=== PATIENT | male | born 1940 | race Two or more races ===

== ENCOUNTER 2021-08-22 02:05 | Emergency (ER) | payer OTHER ==
[~2021-08-22] VITALS: Ht 170.2 cm; Wt 68.0 kg
[2021-08-22 03:31] LABS: Basophils # (auto) 0.1 10 ^3/uL (0-0.2); Basophils % (auto) 0.6 % (0.0-2.0); Eosinophils # (auto) 0.3 10 ^3/uL (0-0.8); Eosinophils % (auto) 1.3 % (0.0-7.0); Hematocrit 32.9 % (41.0-53.0); Hemoglobin 10.5 g/dL (13.5-17.5); Lymphocytes # (auto) 1.3 10 ^3/uL (0.4-5.4); Lymphocytes % (auto) 6.4 % (10.0-50.0); Mean Corpuscular Hemoglobin 29.9 pg (28.0-32.0); Mean Corpuscular Hgb Conc. 31.9 g/dL (32.0-36.0); Mean Corpuscular Volume 93.8 fL (80.0-100.0); Monocytes % (auto) 4.9 % (0.0-12.0); Neutrophils # (auto) 17.1 10 ^3/uL (1.6-8.6); Neutrophils % (auto) 86.8 % (37.0-80.0); Red Blood Cells 3.51 10^6/uL (4.5-5.90); Red Cell Distribution Width 14.1 % (11.8-14.3); White Blood Cell 19.7 10^3/uL (4.4-10.8)
[2021-08-22] MEDS ORDERED: HYDROcodone-ACET 7.5/325MG TAB PO ONE (03:45)
[2021-08-22 03:58] LABS: Lactic Acid w/Reflex 2.8 mmol/L (0.4-2.0)
[2021-08-22 04:00] LABS: Albumin 2.8 g/dL (3.4-5.0); BUN/Creatinine Ratio 22.5; Calcium 8.1 mg/dL (8.5-10.1); Magnesium 3.2 mg/dL (1.6-2.6); Potassium 4.4 mmol/L (3.5-5.1)
[2021-08-22 04:07] LABS: Bilirubin, Total 0.3 mg/dL (0.2-1.0); Total Protein 5.7 g/dL (6.4-8.2)
[2021-08-22 04:13] LABS: CRP High Sensitivity 0.64 mg/dL (< 0.3)
[2021-08-22] MEDS ORDERED: PIPERACILLIN-TAZOB 3.375GM 100 ML IV ONE (04:30)
[2021-08-22] MEDS ORDERED: SODIUM CHLORIDE 0.9% 2,000 ML IV ONE (04:30)
[2021-08-22] MEDS: SODIUM CHLORIDE 0.9% 1,000 ML IV ONE ×2 (09:00)
[2021-08-22] MEDS: FINASTERIDE 5 MG TAB PO SCH ×2 (09:00→10:00)
[2021-08-22] MEDS: ALBUTEROL SULF 2.5 MG/0.5ML(0.5%) NEB SOLN NEB SCH ×3 (12:00→23:42)
[2021-08-22 12:11] LABS: Partial Thromboplastin Time 25.9 sec (23.6-33.0)
[2021-08-22] MEDS: PIPERACILLIN-TAZOB 2.25GM 50 ML IV SCH ×2 (12:15→18:00)
[2021-08-22] MEDS ORDERED: HYDROcodone-ACET 10/325MG TAB PO PRN (12:30)
[2021-08-23] MEDS: PIPERACILLIN-TAZOB 2.25GM 50 ML IV SCH ×7 (00:55→18:49)
[2021-08-23] MEDS: ALBUTEROL SULF 2.5 MG/0.5ML(0.5%) NEB SOLN NEB SCH ×3 (06:00→18:00)
[2021-08-23] MEDS: FINASTERIDE 5 MG TAB PO SCH (10:34)
[2021-08-23] MEDS ORDERED: DOCUSATE SOD 100 MG CAP PO PRN (14:45)
[2021-08-24] MEDS: PIPERACILLIN-TAZOB 2.25GM 50 ML IV SCH ×3 (00:09→10:38)
[2021-08-24 05:41] LABS: Anion Gap 9 (5-15); Blood Urea Nitrogen 39 mg/dL (7-18); Calcium 8.3 mg/dL (8.5-10.1); Carbon Dioxide 24 mmol/L (21-32); Chloride 109 mmol/L (98-107); Glucose 135 mg/dL (74-106); Potassium 4.5 mmol/L (3.5-5.1); Sodium 142 mmol/L (136-145)
[2021-08-24 05:44] LABS: BUN/Creatinine Ratio 18.9; GFR African American 40 mL/min; GFR Non-African American 33 mL/min
[2021-08-24] MEDS: ALBUTEROL SULF 2.5 MG/0.5ML(0.5%) NEB SOLN NEB SCH ×3 (06:16→12:23)
[2021-08-24 06:56] LABS: Basophils # (auto) 0 10 ^3/uL (0-0.2); Basophils % (auto) 0.5 % (0.0-2.0); Eosinophils # (auto) 0.1 10 ^3/uL (0-0.8); Eosinophils % (auto) 1.2 % (0.0-7.0); Hemoglobin 8.5 g/dL (13.5-17.5); Lymphocytes # (auto) 0.8 10 ^3/uL (0.4-5.4); Mean Corpuscular Hemoglobin 30.2 pg (28.0-32.0); Mean Corpuscular Hgb Conc. 32.8 g/dL (32.0-36.0); Mean Corpuscular Volume 92.2 fL (80.0-100.0); Monocytes # (auto) 0.6 10 ^3/uL (0-1.3); Monocytes % (auto) 7.5 % (0.0-12.0); Neutrophils # (auto) 7.1 10 ^3/uL (1.6-8.6); Neutrophils % (auto) 81.8 % (37.0-80.0); Red Blood Cells 2.82 10^6/uL (4.5-5.90); Red Cell Distribution Width 13.9 % (11.8-14.3); White Blood Cell 8.7 10^3/uL (4.4-10.8)
[2021-08-24] MEDS: FINASTERIDE 5 MG TAB PO SCH (10:38)
[2021-08-24 13:00] VITALS: BP 140/55
== END 2021-08-24 16:13 | disposition home or self-care (01) ==
LOC: EDBD 02:05 → ER 02:05
DX: J18.9 Pneumonia, unspecified organism (principal); J91.0 Malignant pleural effusion; E86.0 Dehydration; Z20.822 Contact with and (suspected) exposure to COVID-19
CPT/HCPCS: 36415; 36600; 71045; 71250; 76775; 76942; 78582; 80048; 80053; 82306; 82728; 82805; 83605; 83615; 83735; 83880; 83970; 83986; 84484; 85025; 85379; 85610; 85730; 86141; 87040; 87070; 87205; 87426; 87493; 89051; 93005; 93970; 94640; 96365; 96366; 99285; A9540; A9558; C1729; J2543; J7030